=== PATIENT | female | born 1965 | race Caucasian/White ===

== ENCOUNTER 2022-07-21 14:02 | Outpatient (CLI) | payer SELFPAY | END 2022-07-21 14:03 | disposition home or self-care (01) | LOC: LABBT 14:02 | PROVIDERS: ATTEND Ophthalmology Retina Specialist | DX: Z20.822 Contact with and (suspected) exposure to COVID-19 (principal) | CPT/HCPCS: 87811 ==

== ENCOUNTER 2022-07-22 08:19 | Day surgery (SDC) | payer SELFPAY ==
[2022-07-07 13:39] VITALS: BMI 23.5
[~2022-07-22 08:19] MED LIST: EPINEPHrine 0.3 MG in Ophthalmic Irrigation Solution 500 ML IRR SCH
[2022-07-22] MEDS ORDERED: Fentanyl 100 MCG/2 ML VIAL ONE (09:36)
[2022-07-22] MEDS ORDERED: Famotidine/PF 20 mg/2ml Vial ONE (09:36)
[2022-07-22] MEDS ORDERED: Phenylephrine 2.5% Ophth Soln 5 ML BOT ONE (09:36)
[2022-07-22] MEDS ORDERED: Cyclopentolate 1% Opth Drop 2 ML BOT ONE (09:36)
[2022-07-22] MEDS ORDERED: Midazolam HCl 2 mg/2 ml Vial ONE (09:37)
[2022-07-22] MEDS ORDERED: PROPOFOL 200 MG/20 ML VIAL ONE (09:39)
[2022-07-22] MEDS ORDERED: Lidocaine 1% MPF 2 ML VIAL ONE (09:39)
[2022-07-22] MEDS ORDERED: Metoclopramide HCl 10 MG/2 ML VIAL ONE (09:39)
[2022-07-22] MEDS ORDERED: Lidocaine 1% PF 5 ML VIAL ONE (09:39)
[2022-07-22] MEDS ORDERED: Lidocaine 4% PF 5 ML AMP ONE (09:39)
[2022-07-22] MEDS ORDERED: CEFAZOLIN 1 GM VIAL ONE (09:39)
[2022-07-22] MEDS ORDERED: Triamcinolone 40 MG/ML VIAL ONE (09:39)
[2022-07-22] MEDS ORDERED: Bupivacaine 0.75% 10 ML VIAL ONE (09:39)
[2022-07-22] MEDS ORDERED: Ondansetron PF 4 MG/2 ML Vial ONE (09:39)
== END 2022-07-22 13:34 | disposition home or self-care (01) ==
LOC: SDC 08:19
PROVIDERS: ATTEND Ophthalmology Retina Specialist
PROC: 08123J4 Bypass Right Anterior Chamber to Sclera with Synthetic Substitute, Percutaneous Approach (ICD-10-PCS; principal; 2022-07-22)
PROC: 08H Eye, Insertion (ICD-10-PCS; principal; 2022-07-22)
DX: H27.01 Aphakia, right eye (principal); H40.2213 Chronic angle-closure glaucoma, right eye, severe stage; Z79.01 Long term (current) use of anticoagulants; Z79.890 Hormone replacement therapy; Z79.899 Other long term (current) drug therapy; Z88.1 Allergy status to other antibiotic agents; Z88.8 Allergy status to other drugs, medicaments and biological substances
CPT/HCPCS: C1762; J0171; J0690; J2250; J2405; J2704; J2765; J3010; J3301; J3490; L8612; S0028; V2632